=== PATIENT | female | born 2000 | race African-American/Black ===

== ENCOUNTER 2024-04-14 04:53 | Emergency (ER) | payer MEDICAID ==
[~2024-04-14] VITALS: Ht 165.1 cm; Wt 122.5 kg
[2024-04-14 05:09] VITALS: BP_SYST 138; PULSE 98; RESP 14; TEMP 97.5; O2SAT 99
[2024-04-14 06:07] LABS: BASOPHILS % (AUTO) 0.4 % (0.0-2.0); EOSINOPHILS # (AUTO) 0.3 K/uL (0.0-0.4); EOSINOPHILS % (AUTO) 4.3 % (0.0-4.0); HEMOGLOBIN 11.2 g/dL (12.0-16.0); LYMPHOCYTES % (AUTO) 29.2 % (20.5-51.5); MEAN CORPUSCULAR HEMOGLOBIN 27 pg (27-31); MEAN CORPUSCULAR HGB CONC 32 % (32-36); MEAN CORPUSCULAR VOLUME 83 fL (79.0-98.0); MONOCYTES # (AUTO) 0.8 K/uL (0.0-1.0); MONOCYTES % (AUTO) 12.4 % (1.7-9.3); NEUTROPHILS # (AUTO) 3.7 K/uL (1.8-7.7); NEUTROPHILS % (AUTO) 53.7 % (40.0-70.0); PLATELET COUNT (AUTO) 183 K/uL (130-430); RED BLOOD CELL COUNT(AUTO) 4.23 MIL/uL (4.2-6.2); RED CELL DISTRIBUTION WIDTH 16.1 % (9.0-15.0); WHITE BLOOD COUNT (AUTO) 6.9 K/uL (4.8-10.8)
[2024-04-14 06:27] LABS: BILIRUBIN,DIRECT 0.1 mg/dL (0.0-0.3); CALCIUM 8.7 mg/dL (8.4-11.0); CREATININE 0.83 mg/dL (0.55-1.30); POTASSIUM 3.8 mmol/L (3.5-5.1); TOTAL BILIRUBIN 0.2 mg/dL (0.0-1.0); TOTAL PROTEIN, SERUM 6.5 g/dL (6.4-8.3)
[2024-04-14 10:33] VITALS: BP_SYST 138; PULSE 98; RESP 14; TEMP 97.5; O2SAT 99
== END 2024-04-14 10:32 | disposition home or self-care (01) ==
LOC: SED 04:53
DX: R07.89 Other chest pain (principal); R60.9 Edema, unspecified; R06.00 Dyspnea, unspecified; R06.01 Orthopnea
CPT/HCPCS: 36415; 71045; 80048; 80076; 83880; 84484; 85025; 93005; 99285